=== PATIENT | female | born 1965 | race Caucasian/White ===

== ENCOUNTER → 2024-09-03 09:50 | Outpatient (REF) | payer OTHER, SELFPAY | LOC: HWWDC 09:50 | PROVIDERS: ATTENDING PHYSICIAN Nurse Practitioner Family | DX: R74.01 Elevation of levels of liver transaminase levels (principal); Z12.31 Encounter for screening mammogram for malignant neoplasm of breast | CPT/HCPCS: 76700; 77063; 77067 ==

== ENCOUNTER → 2025-09-05 10:11 | Outpatient (REF) | payer OTHER, SELFPAY | LOC: HWRAD 10:11 | PROVIDERS: ATTENDING PHYSICIAN Nurse Practitioner Family | DX: Z12.31 Encounter for screening mammogram for malignant neoplasm of breast (principal); M81.0 Age-related osteoporosis without current pathological fracture | CPT/HCPCS: 77063; 77067; 77080 ==